=== PATIENT | female | born 1990 | race Caucasian/White ===

== ENCOUNTER 2016-06-30 16:13 | Emergency (ER) | payer MEDICAID | END 2016-06-30 20:36 | disposition home or self-care (01) | LOC: ER 16:13 | DX: K64.4 Residual hemorrhoidal skin tags (principal); K62.5 Hemorrhage of anus and rectum; Z79.82 Long term (current) use of aspirin; I10 Essential (primary) hypertension | CPT/HCPCS: 36415; 80053; 81003; 83690; 84703; 85025; 93005 ==